=== PATIENT | female | born 1975 | race African-American/Black ===

== ENCOUNTER 2019-01-18 21:36 | Emergency (ER) | payer SELFPAY, OTHER ==
[2019-01-18] MEDS: ALBUTEROL 0.083% (NEB) 2.5 MG/3 ML AMP NEB (21:57)
[2019-01-18] MEDS: IPRATROPIUM (NEB) 0.5 MG/2.5 ML AMP NEB (21:57)
[2019-01-18] MEDS: DEXAMETHASONE 10 MG/ML 1 ML INJ IV (22:03)
[2019-01-18] MEDS: IPRATROPIUM (NEB) 0.5 MG/2.5 ML AMP HHN (22:41)
[2019-01-18] MEDS: ALBUTEROL 0.083% (NEB) 2.5 MG/3 ML AMP HHN (22:41)
[2019-01-18] MEDS: ALBUTEROL HFA 8 GM INHALER INH (22:59)
[2019-01-19] MEDS ORDERED: ALBUTEROL HFA 8 GM INHALER INH (01:00)
== END 2019-01-18 23:08 | disposition home or self-care (01) ==
LOC: FTE 21:36
DX: J45.901 Unspecified asthma with (acute) exacerbation (principal)
CPT/HCPCS: 94640; 94664; 96374; 99284-25